=== PATIENT | female | born 1960 | race African-American/Black ===

== ENCOUNTER 2018-06-20 19:20 | Emergency (ER) | payer OTHER ==
[2018-06-20 19:55] VITALS: BP 139/79; PULSE 121; TEMP 100.7; BMI 30.5
[2018-06-20] MEDS ORDERED: ACETAMINOPHEN 325 MG TABLET (FP) PO ONE (19:57)
--- NOTE | 2018-06-20 19:57 | PDOC ---
Rapid Medical Evaluation Time Seen by Provider: 06/20/18 19:49 Medical Evaluation: Allergies Allergy/AdvReac Type Severity Reaction Status Date / Time codeine [Codeine] Allergy Intermediate Difficulty Verified 09/19/14 22:46 Breathing honey Allergy Intermediate Difficulty Verified 09/19/14 22:46 Breathing morphine Allergy Intermediate Difficulty Verified 09/19/14 22:46 Breathing BEE STING Allergy Severe Difficulty Uncoded 09/19/14 22:46 Breathing 06/20/18 19:49 I have performed a brief in-person evaluation of this patient The patient presents with a chief complaint of cough for 2 weeks, PMD gave her zithromax, prednisone, albuterol for 4 days. Pt was getting better but symptoms started worsening and PMD started her on Biaxin yesterday. (+)fever today 102. Pt took Aleve and tylenol at 2pm Also w/ chest tightness, difficulty breathing. Pt has never been intubated for asthma. Last attack was 2 weeks ago Pertinent physical exam findings: lungs clear I have ordered the following: CXR, tylenol The patient will proceed to the ED for further evaluation Discharge Disposition - Diagnosis Cough - Referrals Referrals: Enoch Barton MD [Primary Care Provider] - - Patient Instructions - Post Discharge Activity
[2018-06-20] MEDS ORDERED: ACETAMINOPHEN 325 MG TABLET (FP) ONE (20:19)
--- NOTE | 2018-06-20 20:21 | PDOC ---
History of Present Illness - General Chief Complaint: Respiratory Stated Complaint: Cold Symptoms Time Seen by Provider: 06/20/18 19:49 History Source: Patient Exam Limitations: No Limitations - History of Present Illness Initial Comments: Patient is a 57-year-old female who states over the past 2 week she has had a cough. She self diagnosed and gave herself a Z-John. She followed-up with her primary care physician who gave her prednisone. She states that her symptoms resolved however over the past 2 days she began with a cough and a fever. She did receive her influenza vaccination. She denies sick contacts or recent international travel. No antipyretics taken prior to arrival. She denies chest pain or shortness of breath. Patient denies aggravating or relieving factors. 06/20/18 20:19 Past History - Travel Traveled outside of the country in the last 30 days: No Close contact w/someone who was outside of country & ill: No - Past Medical History Allergies/Adverse Reactions: Allergies Allergy/AdvReac Type Severity Reaction Status Date / Time codeine [Codeine] Allergy Intermediate Difficulty Verified 06/20/18 19:56 Breathing honey Allergy Intermediate Difficulty Verified 06/20/18 19:56 Breathing morphine Allergy Intermediate Difficulty Verified 06/20/18 19:56 Breathing BEE STING Allergy Severe Difficulty Uncoded 06/20/18 19:56 Breathing Home Medications: Ambulatory Orders Albuterol Sulfate Inhaler - [Ventolin HFA Inhaler -] 2 inh IH DAILY PRN Aspirin [ASA -] 81 mg PO DAILY 06/24/12 Alprazolam [Xanax] 0.25 mg PO TID #0 tablet 06/25/12 Pantoprazole Sodium [Protonix -] 40 mg PO DAILY #0 tablet.ec 06/25/12 Clarithromycin [Biaxin -] 250 mg PO BID 06/20/18 Anemia: No Asthma: Yes Cancer: No Cardiac Disorders: No CVA: No COPD: No Dementia: No Diabetes: No Dialysis: No GI Disorders: No Disorders: No HTN: Yes Hypercholesterolemia: No Kidney Stones: No Liver Disease: No Seizures: No Thyroid Disease: No - Surgical History Abdominal Surgery: Yes (Ovarian Cystectomy X 2, Myomectomy, Hysteroscopy.) - Suicide/Smoking/Psychosocial Hx Smoking Status: Yes Smoking History: Never smoked Have you smoked in the past 12 months: No Number of Cigarettes Smoked Daily: 0 If you are a former smoker, when did you quit?: '09 Information on smoking cessation initiated: No Hx Alcohol Use: No Drug/Substance Use Hx: No Substance Use Type: None Review of Systems - Review of Systems Able to Perform ROS?: Yes Constitutional: Yes: Chills, Fever Respiratory: Yes: Cough, Productive cough. No: Shortness of Breath, Wheezing Cardiac (ROS): No: Chest Pain All Other Systems: Reviewed and Negative *Physical Exam - Vital Signs Last Vital Signs Temp Pulse Resp BP Pulse Ox 100.7 F H 121 H 16 139/79 100 06/20/18 19:51 06/20/18 19:51 06/20/18 19:51 06/20/18 19:51 06/20/18 19:51 - Physical Exam Comments: 06/20/18 20:21 Constitutional: VS stated, pt appears in no apparent distress; sitting in chair. Able to speak in complete sentences. Skin: Warm and dry. Intact, no lesions or excoriations. Head: Normocephalic; atraumatic Eyes: onjunctiva pink without injection or discharge. Ears: No tenderness present. Canals without injection or discharge; TM clear, no retractions or bulging. Nose: Patent, mucosa pink. No drainage. Throat: Oropharynx with pink and moist mucosa. Dentition good. No pharyngeal edema; erythema or exudate. Tongue normal, no fasciculations. Airway Patent. Hypoglossal area is soft. Uvula is midline. No trismus. Neck: Supple, non-tender, with full ROM, trachea midline, no anterior/posterior cervical chain lymphadenopathy, thyroid nonpalpable. No stridor or bruits. Chest: Normal AP diameter, symmetrical excursions bilaterally, no retractions or bulging of the intercostal spaces. No pain or tenderness noted on palpation. Lungs: Bilateral breath sounds clear upon auscultation. No adventitious breath sounds. Heart: Regular rate and rhythm, S1/S2 auscultated. No murmurs, rubs, or gallops. No visible pulsations, heaves, or lifts on precordium. Musculoskeletal: Moves all extremities without difficulty. Neurologic: Awake, alert. Conversation fluent. Moderate Sedation - Procedure Monitoring Vital Signs: Procedure Monitoring Vital Signs Temperature 100.7 F H 06/20/18 19:51 Pulse Rate 121 H 06/20/18 19:51 Respiratory Rate 16 06/20/18 19:51 Blood Pressure 139/79 06/20/18 19:51 O2 Sat by Pulse Oximetry (%) 100 06/20/18 19:51 ED Treatment Course - RADIOLOGY Radiology Studies Ordered: CXR is negative 06/20/18 21:07 Medical Decision Making - Medical Decision Making Pt's CXR was negative Pt's Influenza was negative Pt was given 650 mg PO. 06/20/18 20:21 06/20/18 21:07 *DC/Admit/Observation/Transfer Diagnosis at time of Disposition: Cough, Fever - Discharge Dispostion Disposition: HOME Condition at time of disposition: Stable Decision to Admit order: No - Referrals Referrals: Enoch Barton MD [Primary Care Provider] - - Patient Instructions Printed Discharge Instructions: DI for Fever (Symptom) -- Adult Additional Instructions: Tylenol 650 mg PO every 4 hours. Take Ibuprofen 600 mg every 6 hours. F/U with your PCP. - Post Discharge Activity Forms/Work/School Notes: Back to Work
== END 2018-06-20 21:17 | disposition home or self-care (01) ==
LOC: JERFT 19:20
DX: R05 Cough (principal); R50.9 Fever, unspecified; Z87.891 Personal history of nicotine dependence; I10 Essential (primary) hypertension; J45.909 Unspecified asthma, uncomplicated
CPT/HCPCS: 71046-TC-FY; 87804; 99281-25